=== PATIENT | female | born 2000 | race Caucasian/White ===

== ENCOUNTER → 2019-02-26 | Outpatient (CLI) | payer BC ==
--- NOTE | 2019-02-26 10:12 | REP ---
Clinical: Pain. Arthralgia. Technique: AP, lateral, bilateral oblique views right wrist . Findings: The carpal bones, surrounding osseous structures, soft tissues, and joint spaces are normal. There is no evidence for acute fracture or dislocation. No subcutaneous emphysema or radiodense foreign body. Impression: Normal wrist series. No acute fracture or dislocation Electronically Signed by Gustavo Do MD 02/26/2019 10:03 A
--- NOTE | 2019-02-26 10:12 | REP ---
Clinical: Acute right hip pain. Technique: Neutral and frog lateral views of the right hip. Findings: Osseous structures, joint spaces, and surrounding soft tissues are normal. No acute fracture dislocation. No degenerative or congenital abnormalities are noted. Impression: Normal right hip radiographs. Electronically Signed by Gustavo Do MD 02/26/2019 10:04 A
[2019-02-26 10:41] LABS: C REACTIVE PROTEIN QUANTITATIV < 0.30 MG/DL (0.00-0.30); RHEUMATOID FACTOR QUANT < 10.0 IU/ML (<15.0)
[2019-02-28 00:06] LABS: ANA (HEP2) Positive (.); CYCLIC CITRULLINATED PEPTIDE 8 units (0-19)
== END ==
LOC: M LAB 09:28
PROVIDERS: ATTEND Internal Medicine Rheumatology
DX: M25.50 Pain in unspecified joint (principal); M25.551 Pain in right hip